=== PATIENT | female | born 1955 | race Caucasian/White ===

== ENCOUNTER 2017-06-10 09:32 | Day surgery (SDC) | payer MEDICARE, OTHER ==
[~2017-06-10] VITALS: Ht 160 cm; Wt 88.4 kg
[~2017-06-10 09:32] MED LIST: ALBU90OI6 INH; AMLO5 PO; Acid Control20 MG PO; BUDE6HFA; BUDE6HFA INH; CITRACAL + D E1 EACH; DESCOVY 200-251 EACH; DESCOVY 200-251 EACH PO; FLUC100; Flonase 0.05% N16 GM; Hair, Skin & N1 EACH; LOSARTAN POTAS100 MG PO; OMEP20ER PO; PANT40 PO; Pseudoephedrine30 MG PO; SULFAMETHOXAZO MC; Synthroid175 MCG PO; TIVICAY50 MG PO; TRIA15CR3; TURMERIC500 M2 PO
== END 2017-06-10 12:19 | disposition home or self-care (01) ==
LOC: ORSCSDS 09:32
PROVIDERS: Internal Medicine Gastroenterology
PROC: 0DJD8ZZ Inspection of Lower Intestinal Tract, Via Natural or Artificial Opening Endoscopic (ICD-10-PCS; principal; 2017-06-10 10:45)
DX: Z12.11 Encounter for screening for malignant neoplasm of colon (principal); B20 Human immunodeficiency virus [HIV] disease; K64.8 Other hemorrhoids; K57.30 Diverticulosis of large intestine without perforation or abscess without bleeding; Z86.010 Personal history of colon polyps; Z98.84 Bariatric surgery status; K21.9 Gastro-esophageal reflux disease without esophagitis; J44.9 Chronic obstructive pulmonary disease, unspecified; I10 Essential (primary) hypertension; Z87.891 Personal history of nicotine dependence; Z79.899 Other long term (current) drug therapy
CPT/HCPCS: J7120

== ENCOUNTER 2018-10-09 01:24 | Inpatient (IN) | payer MEDICARE, OTHER ==
[~2018-10-09] VITALS: Ht 157.5 cm; Wt 87.9 kg
[2018-10-09 04:41] LABS: Hematocrit 35.9 % (33.0-51.0); Hemoglobin 11.6 g/dL (11.5-16.0); Mean Corpuscular HGB 27.7 pg (26.0-34.0); Mean Corpuscular HGB Conc 32.3 g/dL (31.5-36.5); Mean Corpuscular Volume 86 fL (80-100); Mean Platelet Volume 9.3 fL (9.1-12.4); Platelet Count 297 K/mm3 (150-400); RDW Coefficient Variation 15.8 % (11.7-14.2); RDW Standard Deviation 49.6 fL (35.1-46.3); Red Blood Cell Count 4.19 M/mm3 (3.80-5.20); White Blood Cell Count 8.36 K/mm3 (4.00-11.30)
[2018-10-09 05:00] LABS: Alanine Aminotransfer (ALT/SGP 39 U/L (12-78); Albumin, Blood 3.7 g/dL (3.4-5.0); Albumin/Globulin Ratio 1.2 (0.8-1.8); Alk Phos 128 U/L (50-136); Anion Gap 7 mmol/L (6-16); Aspartate Aminotrans (AST/SGOT 44 U/L (12-37); Bilirubin, Total 0.4 mg/dL (0.1-1.0); Blood Urea Nitrogen 14 mg/dL (8-24); Bun/Creatinine Ratio 19.3 (12.0-20.0); CO2, Blood 27 mmol/L (21-32); Calcium, Blood 9.1 mg/dL (8.5-10.1); Chloride, Blood 103 mmol/L (98-108); Creatinine, Blood 0.73 mg/dL (0.40-1.00); Globulin, Blood 3.1 g/dL (2.2-4.0); Glomerular Filtration Rate >60 (60-); Glucose, Blood 126 mg/dL (70-99); Potassium, Blood 3.7 mmol/L (3.5-5.5); Sodium, Blood 137 mmol/L (136-145); Total Protein, Blood 6.8 g/dL (6.4-8.2)
[2018-10-09] MEDS ORDERED: FLUC100 PO (05:31)
--- NOTE | 2018-10-09 07:50 | NUR ---
SHIFT SUMMARY NEW ADMIT THIS AM. AAOX4. NPO. ORIENTED TO ROOM + CALL LIGHT USE. REPOSITIONED FOR COMFORT. ADMISSION HX + MED REC COMPLETED PER PT. ORTHO CONSULT ORDERED + TO BE CALLED THIS AM BY DAY SHIFT RN. PT RESTING THIS AM. CALL LIGHT IN REACH + PT USES FOR ASSISTANCE.
--- NOTE | 2018-10-09 09:09 | NUR ---
DR TEJEDATRATE RECENTLY IN TO SEE PT.
--- NOTE | 2018-10-09 12:19 | NUR ---
BLOOD BANK CALLED RN RECENTLY AND REPORTED THAT PT HAS ANTIBODY THAT IS WEAK AND THAT THEY ARE UNABLE TO IDENTIFY AND THAT THEY WILL HAVE TO SEND OUT TO IDENTIFY. THEY REPORTED THAT IF PT NEEDS PRBC'S AT THIS TIME IT WOULD HAVE TO BE A "HIGH RISK COMPATABILITY" AND THAT THE DR WOULD HAVE TO SIGN OFF ON IT. DR ISTRATE NOTIFIED. BLOOD BANK NOTIFIED. DISCUSSED WITH COKE WORKER.
--- NOTE | 2018-10-09 13:34 | NUR ---
DR DOUGLAS HERE TO SEE PT. REPORTS PT MAY EAT, NPO ATER MIDNIGHT.
--- NOTE | 2018-10-09 17:55 | NUR ---
PT STATED BEDPAN WAS CAUSING TOO MUCH PAIN. ORDER FOR CATHETER OBTAINED. ATTEMPTED TO PLACE SAAB CATHETER PER ORDER WITH RN. FIRST ATTEMPT BY STUDENT, SECOND ATTEMPT BY RN W/ NEW KIT. INSERTION WAS UNSUCCESSFUL BOTH TIMES. PT STATED A LOT OF PAIN. PAIN MED GIVEN PER ORDER BY RN. SEE EMAR. PT DOES NOT WANT ANY OTHER ATTEMPTS FOR CATHETER PLACEMENT AT THIS TIME. RN ASSISTING WITH CATHETER PLACEMENT IS FEMALE.
--- NOTE | 2018-10-09 19:19 | NUR ---
SHIFT SUMMARY PT SEEN BY DR DOUGLAS TODAY. PT HAS BEEN ON BEDREST TODAY. HAS A LOT OF PAIN WITH MOVEMENT. PT USING BEDPAN. KATIANA ATTEMPTED BUT UNSUCCESSFUL. SEE NOTE. PT ATE TODAY. PT TO BE NPO AFTER MIDNIGHT PER ORDERS. PT TOLERATING FOOD AND LIQUIDS TODAY. HAS BEEN URINATING. PT HAS HAD PAIN MED PER ORDERS. SEE EMAR.
[2018-10-10 03:51] LABS: BASOPHILS ABSOLUTE AUTO 0.03 K/mm3 (0.00-0.23); BASOPHILS PERCENT AUTO 0 % (0-2); EOSINOPHILS ABSOLUTE AUTO 0.24 K/mm3 (0.00-0.68); EOSINOPHILS PERCENT AUTO 3 % (0-6); Hematocrit 36.2 % (33.0-51.0); Hemoglobin 11.4 g/dL (11.5-16.0); IMMATURE GRAN ABSOLUTE AUTO 0.02 K/mm3 (0.00-0.10); IMMATURE GRAN PERCENT AUTO 0 % (0-1); LYMPHOCYTES ABSOLUTE AUTO 1.55 K/mm3 (0.84-5.20); LYMPHOCYTES PERCENT AUTO 18 % (21-46); MONOCYTES ABSOLUTE AUTO 0.75 K/mm3 (0.16-1.47); MONOCYTES PERCENT AUTO 9 % (4-13); Mean Corpuscular HGB 27.4 pg (26.0-34.0); Mean Corpuscular HGB Conc 31.5 g/dL (31.5-36.5); Mean Corpuscular Volume 87 fL (80-100); Mean Platelet Volume 9.6 fL (9.1-12.4); NEUTROPHILS ABSOLUTE AUTO 5.83 K/mm3 (1.96-9.15); NEUTROPHILS PERCENT AUTO 69 % (41-73); Platelet Count 297 K/mm3 (150-400); RDW Coefficient Variation 16.2 % (11.7-14.2); Red Blood Cell Count 4.16 M/mm3 (3.80-5.20); White Blood Cell Count 8.42 K/mm3 (4.00-11.30)
--- NOTE | 2018-10-10 04:27 | NUR ---
SHIFT SUMMARY: PT A&O X4, VS WNL. ON 2 L O2 VIA NC R/T PAIN MEDS. PAIN MANAGED WITH 25 MCG OF FENTANYL. ICE PACK TO HIP IN PLACE. SCDS ON. USING BEDPAN PRN. VOIDING WELL. PT HAS BEEN NPO SINCE MIDNIGHT FOR POSSIBLE SURGERY LATER TODAY.
--- NOTE | 2018-10-10 19:04 | NUR ---
SHIFT SUMMARY PAIN HAS BEEN MANAGED WITH IV PAIN MEDICATION THIS SHIFT. PT IS A 1 ASSIST TO USE THE BEDPAN OR REPOSITION IN BED. PLAN FOR SURGERY TOMORROW. VSS. WILL MONITOR UNTIL REPORT TO ONCOMING RN.
--- NOTE | 2018-10-11 07:10 | NUR ---
SHIFT SUMMARY PT SCHEDULED FOR L HIP REPAIR THIS AM. NPO AFTER MN, MAINTENENCE FLUIDS PER EMAR, NEW 18G IV PLACED LAST NIGHT. PT USED THE BEDPAN LAST NIGHT WITH ASSIST. MEDICATED FOR PAIN EVERY 3-4 HOURS PER EMAR WITH GOOD EFFECT. PT IS A&O, ABLE TO MAKE NEEDS KNOWN. 2L O2 VIA NC OVERNIGHT FOR HIGH RISK PAIN MANAGEMENT BUT REMOVED THIS AM, PT DEEP BREATHING, USING IS. REPORT PASSED TO ONCOMING SHIFT.
--- NOTE | 2018-10-11 11:00 | NUR ---
TO SDS VIA BED, CONFIRMED SURGERY AND SURGEON. PRE OPTEACHING DONE. LUNGS CLEAR BUT DECREASED. PAS .TEDS AND SOCKS PLACED
--- NOTE | 2018-10-11 11:51 | NUR ---
SHIFT ASSESSMENT PT ASSESSED THIS BY THIS RN AT APPROXIMATELY 0830. SHIFT ASSESSMENT DOCUMENTATION BY REI JURADO NURSE WAS REVIEWED AND THIS RN AGREES WITH THAT DOCUMENTATION.
--- NOTE | 2018-10-11 15:00 | NUR ---
PT RETURNED FROM SURGERY AT 1500
--- NOTE | 2018-10-11 18:06 | NUR ---
SHIFT ASSESSMENT PT ADMITTED FOR A SUBCAPITAL FX TO LEFT FEMUR. PT HAD L TOTAL HIP ARTHROPLASTY. PT HAS DIABETIC DIET. HAS NOT BEEN UP POST-OP OF TIME OF WRITING. PT HAS HAD LITTLE PAIN SINCE SURGERY AND HAS BEEN CONTROLLED WITH TORADOL AND TYLENOL. DRESSING IS CLEAN DRY AND IN PLACE.
--- NOTE | 2018-10-11 18:42 | NUR ---
SHIFT SUMMARY PT HAD A L KILLIAN WITH DR. DHALIWAL TODAY. PT IS DOING WELL POST-OP. SHE HAS DENIED PAIN SINCE SURGERY. PT HAS BEEN ABLE TO VOID POST-OP. SHE IS TOLERATING PO. VSS. WILL MONITOR UNTIL REPORT TO ONCOMING RN.
--- NOTE | 2018-10-12 04:41 | NUR ---
SHIFT SUMMARY: PT POD #1 FOR L KILLIAN. A&O X4. VS WNL. OOB TO BSC WITH ONE ASSIST AND FWW. ATIF ACTIVITY WELL. VOIDING. ATIF PO. NO COMPLAINTS OF NAUSEA. ADEQAUTE PAIN CONTROL WITH 5MG OF OXY + SCHED TORADOL AND TYLENOL. RATING PAIN 0/10. POST OP ABX COMPLETE.
[2018-10-12 05:11] LABS: BASOPHILS ABSOLUTE AUTO 0.03 K/mm3 (0.00-0.23); BASOPHILS PERCENT AUTO 0 % (0-2); EOSINOPHILS ABSOLUTE AUTO 0.19 K/mm3 (0.00-0.68); EOSINOPHILS PERCENT AUTO 2 % (0-6); Hematocrit 31.7 % (33.0-51.0); IMMATURE GRAN ABSOLUTE AUTO 0.03 K/mm3 (0.00-0.10); IMMATURE GRAN PERCENT AUTO 0 % (0-1); LYMPHOCYTES ABSOLUTE AUTO 1.39 K/mm3 (0.84-5.20); LYMPHOCYTES PERCENT AUTO 17 % (21-46); MONOCYTES ABSOLUTE AUTO 0.67 K/mm3 (0.16-1.47); MONOCYTES PERCENT AUTO 8 % (4-13); Mean Corpuscular HGB 27.5 pg (26.0-34.0); Mean Corpuscular HGB Conc 31.5 g/dL (31.5-36.5); Mean Corpuscular Volume 87 fL (80-100); Mean Platelet Volume 9.6 fL (9.1-12.4); NEUTROPHILS ABSOLUTE AUTO 5.97 K/mm3 (1.96-9.15); NEUTROPHILS PERCENT AUTO 72 % (41-73); Platelet Count 275 K/mm3 (150-400); RDW Coefficient Variation 15.9 % (11.7-14.2); RDW Standard Deviation 51.6 fL (35.1-46.3); Red Blood Cell Count 3.63 M/mm3 (3.80-5.20); White Blood Cell Count 8.28 K/mm3 (4.00-11.30)
[2018-10-12 05:34] LABS: Anion Gap 8 mmol/L (6-16); Blood Urea Nitrogen 13 mg/dL (8-24); Bun/Creatinine Ratio 17.7 (12.0-20.0); CO2, Blood 29 mmol/L (21-32); Calcium, Blood 8.8 mg/dL (8.5-10.1); Chloride, Blood 103 mmol/L (98-108); Creatinine, Blood 0.73 mg/dL (0.40-1.00); Glomerular Filtration Rate >60 (60-); Glucose, Blood 100 mg/dL (70-99); Potassium, Blood 3.7 mmol/L (3.5-5.5); Sodium, Blood 140 mmol/L (136-145)
--- NOTE | 2018-10-12 16:02 | NUR ---
SUMMARY PATIENT TELLS ME BECAME HOT AND SLIGHTLY DIZZY WHILE WORKING WITH PT, PATIENT FEELS BETTER SINCE RETURN TO ROOM AND SITTING IN CHAIR. PAIN CONTROLLED WITH PO MEDS. PATIENT ANTICIPATES DISCHARGE TO HOME TOMORROW.
--- NOTE | 2018-10-12 16:29 | NUR ---
ASSUMED CARE OF PATIENT AT THIS TIME. PT HAS BEEN UP IN CHAIR FOR SEVERAL HOURS. PT WORKED WELL WITH THERAPY. PAIN REPORTED TO BE MANAGED. PT ASSISTED BACK TO BED FROM CHAIR. CALL LIGHT PLACED IN REACH. WILL CONT TO MONITOR AND TREAT.
--- NOTE | 2018-10-12 16:30 | NUR ---
10/12/18 5440 Sparkle Roth CHART VERIFICATIONS, EDITS.
--- NOTE | 2018-10-13 04:18 | NUR ---
SHIFT SUMMARY: PT POD #2 FOR L KILLIAN. PAIN MANAGED WITH 5MG OXY AND SCHED TYLENOL. PT REPORTS GOOD PAIN CONTROL. OOB TO BATHROOM W/FWW+GB. ATIF ACTIVITY WELL. VOIDING AND ATIF PO. DENIES N/V. PT REPORTS NO BM FOR 6 DAYS. PT HAS BEEN GIVEN BOWEL CARE W/O ANY SUCCESS YET. WILL CTM. PLAN FOR POSSIBLE DISCHARGE TODAY WITH HOME HEALTH.
--- NOTE | 2018-10-13 10:50 | NUR ---
DR CHRISTIE HERE RECENTLY TO SEE PT. SEE ORDERS.
--- NOTE | 2018-10-13 10:56 | NUR ---
PT GIVEN SUPP PER PT REQ SHE REQ TO HAVE BM BEFORE GOING HOME.
[2018-10-13] MEDS ORDERED: Percocet 5-3251 EACH PO (14:30)
[2018-10-13] MEDS ORDERED: XARELTO10 MG PO (14:30)
--- NOTE | 2018-10-13 19:16 | NUR ---
DISCHARGE: PT NOW DISCHARGED. PT/FAMILY REPORTED UNDERSTANDING OF DISCHARGE INSTRUCTIONS. PT REQ TO HAVE SHOWER BEFORE GOING HOME. PT NOW OUT OF SHOWER WAS ASSISTED WITH DRESSING WITH FEMALE PAYROLL BENEFITS ADMINISTRATOR AND FAMILY. PT/FAMILY REPORTS UNDERSTANDING OF ICE MACHINE AND DRESSING CHANGES. PT SENT WITH DRESSINGS, ICE MACHINE, SCRIPTS AND PT'S OWN HOME MEDS WELL OTHER BELONGINGS. PT OUT BY W/C WITH HS PAYROLL BENEFITS ADMINISTRATOR. PT EATING AND DRINKING, VOIDING, POOPING. PT WENT TO RESTROOM BEFORE SHOWERING. PT IV OUT WNL BEFORE PAPERWORK COMPLETED, NO OTHER IV'S IN PLACE.
== END 2018-10-13 19:15 | disposition home health service (06) | DRG 470 ==
LOC: ER 01:24 → SURS 04:14
PROVIDERS: Orthopaedic Surgery; ADMIT Internal Medicine
PROC: 0SRB0JZ Replacement of Left Hip Joint with Synthetic Substitute, Open Approach (ICD-10-PCS; principal; 2018-10-11 10:00)
DX: S72.012A Unspecified intracapsular fracture of left femur, initial encounter for closed fracture (principal); B20 Human immunodeficiency virus [HIV] disease; M87.00 Idiopathic aseptic necrosis of unspecified bone; J44.9 Chronic obstructive pulmonary disease, unspecified; K21.9 Gastro-esophageal reflux disease without esophagitis; E03.9 Hypothyroidism, unspecified; Z87.891 Personal history of nicotine dependence; Z98.84 Bariatric surgery status; J30.9 Allergic rhinitis, unspecified; I10 Essential (primary) hypertension; R73.9 Hyperglycemia, unspecified
CPT/HCPCS: 36415; 72170; 72192; 73502; 80048; 80053; 82947; 84443; 85025; 85027; 86850; 86900; 86901; 86923; 93005; 93010; 94640; 94760; 96374; 96375; 97110; 97116; 97161; 97165; 97530; 97535; 99285-25; C1776; J0171; J0690; J1170; J1885; J2250; J2370; J2405; J2704; J2795; J3010; J7030; J7070; J7120

== ENCOUNTER 2021-04-09 08:44 | Day surgery (SDC) | payer MEDICARE, OTHER ==
[~2021-04-09] VITALS: Ht 157.5 cm; Wt 89.8 kg
[~2021-04-09 08:44] MED LIST changes: +FLUC100 PO; +Percocet 5-3251 EACH PO; +XARELTO10 MG PO
--- NOTE | 2021-04-09 11:28 | NUR ---
04/09/21 1128 Essence Stern PT. STATES "FEELS LIKE I HAVE REALLY BAD GAS." PT. INSTRUCTED THAT EVENTUALLY IT WOULD ABSORB OR SHE COULD JUST PASS IT OUT.
== END 2021-04-09 11:15 | disposition home or self-care (01) ==
LOC: ORSCSDS 08:44
PROVIDERS: Internal Medicine Gastroenterology
PROC: 0DBK8ZX Excision of Ascending Colon, Via Natural or Artificial Opening Endoscopic, Diagnostic (ICD-10-PCS; principal; 2021-04-09 10:15)
PROC: 0DBL8ZX Excision of Transverse Colon, Via Natural or Artificial Opening Endoscopic, Diagnostic (ICD-10-PCS; principal; 2021-04-09 10:15)
DX: Z12.11 Encounter for screening for malignant neoplasm of colon (principal); Z86.010 Personal history of colon polyps; D12.2 Benign neoplasm of ascending colon; D12.3 Benign neoplasm of transverse colon; K57.30 Diverticulosis of large intestine without perforation or abscess without bleeding; K64.8 Other hemorrhoids; I10 Essential (primary) hypertension; E03.9 Hypothyroidism, unspecified; J44.9 Chronic obstructive pulmonary disease, unspecified; B20 Human immunodeficiency virus [HIV] disease; Z79.899 Other long term (current) drug therapy
CPT/HCPCS: 88305; J2704; J7120

== ENCOUNTER → 2021-07-01 | Outpatient (CLI) | payer MEDICARE, OTHER | END | disposition home or self-care (01) | LOC: LAB SHORT 12:09 | DX: L72.0 Epidermal cyst (principal) | CPT/HCPCS: 88304 ==